=== PATIENT | male | born 1950 | race Caucasian/White ===

== ENCOUNTER 2017-04-24 09:23 | Emergency (ER) | payer BC ==
[~2017-04-24] VITALS: Ht 182.9 cm; Wt 109.1 kg
[~2017-04-24 09:23] MED LIST: ALEVE 220MG220 MG PO; ASPIRIN E.C. 8181 MG PO; CRESTOR 10MG10 MG PO; IMDUR 30MG30 MG/TAB PO; INDERAL LA120 MG PO; LOPRESSOR 225 MG/TAB PO; NITROSTAT0.4 MG/TAB SL; NORCO 325 MG-7.1 TAB PO; PLAVIX 75MG TAB75 MG PO; PRINIVIL20 MG PO; ROXICODONE 55 MG/TAB PO; ZESTRIL 20MG TA20 MG PO
[2017-04-24 09:35] VITALS: TEMP 97.9
[2017-04-24 10:23] LABS: ADJUSTED CALCIUM 8.7 mg/dL (8.4-10.2); ALANINE AMINOTRANSFERASE 32 U/L (21-72); ALBUMIN 4.3 gm/dL (3.5-5.0); ALKALINE PHOSPHATASE 81 U/L (50-136); ANION GAP 13 mmol/L (7-16); BILIRUBIN,TOTAL 0.7 mg/dL (0.0-1.0); BLOOD UREA NITROGEN 15 mg/dL (9-20); CALCIUM 8.9 mg/dL (8.4-10.2); CARBON DIOXIDE 21 mmol/L (22-30); CHLORIDE 110 mmol/L (98-107); CREATININE, serum 0.85 mg/dL (0.66-1.25); GLUCOSE 108 mg/dL (74-106); LIPASE 105 U/L (23-300); SODIUM 144 mmol/L (137-145); TOTAL PROTEIN 7.4 gm/dL (6.4-8.2)
[2017-04-24 10:35] LABS: B-TYPE NATRIURETIC PEPTIDE 78 pg/mL (0-125)
[2017-04-24 10:36] LABS: TROPONIN-I < 0.012 ng/mL (0.000-0.034)
[2017-04-24 10:51] LABS: BASO % 0.7 % (0.0-2.0); EOS # 0.2 (0.0-0.7); EOS % 2.8 % (0-4.0); HEMATOCRIT 38.1 % (42.0-52.0); HEMOGLOBIN 12.2 g/dl (13.5-18.0); LYMPH # 1.6 (1.2-3.4); LYMPH % 29.6 % (20.0-51.0); MEAN CELL VOLUME 81 fl (80.0-100.0); MEAN CORPUSCULAR HEMOGLOBIN 26 pg (27.0-31.0); MEAN CORPUSCULAR HGB CONC 32 g/dl (33.0-37.0); MEAN PLATELET VOLUME 11.4 fl (7.4-10.4); MONO # 0.6 (0.1-0.6); MONO % 10.7 % (1.7-9.3); PLATELET COUNT 172 K/mm3 (130-400); RED BLOOD COUNT 4.69 M/mm3 (4.20-5.60); REDCELL DISTRIBUTION WIDTH-CV 15.4 % (11.5-14.5); WHITE BLOOD COUNT 5.4 K/mm3 (4.8-10.8)
[2017-04-24 11:00] LABS: PARTIAL THROMBOPLASTIN TIME 33.5 SECONDS (26.0-37.0)
[2017-04-24 14:21] VITALS: BP 120/85; PULSE 51
== END 2017-04-24 14:20 | disposition home or self-care (01) ==
LOC: COL.ER 09:23
PROVIDERS: Emergency Medicine
DX: R07.9 Chest pain, unspecified (principal); E78.5 Hyperlipidemia, unspecified; I25.10 Atherosclerotic heart disease of native coronary artery without angina pectoris; Z98.890 Other specified postprocedural states; Z79.82 Long term (current) use of aspirin

== ENCOUNTER 2017-11-19 19:02 | Inpatient (IN) | payer BC ==
[~2017-11-19] VITALS: Ht 182.9 cm; Wt 109.8 kg
[2017-11-19 19:18] LABS: BASO # 0.1 (0.0-0.2); BASO % 0.8 % (0.0-2.0); EOS # 0.3 (0.0-0.7); EOS % 3.9 % (0-4.0); GRAN # 3.9 (1.4-6.5); GRAN % 51.6 % (42.2-75.2); HEMATOCRIT 37.2 % (42.0-52.0); HEMOGLOBIN 12.1 g/dl (13.5-18.0); LYMPH # 2.5 (1.2-3.4); LYMPH % 32.5 % (20.0-51.0); MEAN CELL VOLUME 79 fl (80.0-100.0); MEAN CORPUSCULAR HEMOGLOBIN 26 pg (27.0-31.0); MEAN CORPUSCULAR HGB CONC 33 g/dl (33.0-37.0); MEAN PLATELET VOLUME 10.9 fl (7.4-10.4); MONO # 0.8 (0.1-0.6); MONO % 10.9 % (1.7-9.3); PLATELET COUNT 177 K/mm3 (130-400); REDCELL DISTRIBUTION WIDTH-CV 14.9 % (11.5-14.5)
[2017-11-19 19:30] LABS: ALANINE AMINOTRANSFERASE 33 U/L (21-72); ALBUMIN 4.3 gm/dL (3.5-5.0); ALKALINE PHOSPHATASE 87 U/L (50-136); ANION GAP 14 mmol/L (7-16); AST,SGOT 24 U/L (15-37); BILIRUBIN,TOTAL 0.5 mg/dL (0.0-1.0); BLOOD UREA NITROGEN 16 mg/dL (9-20); CALCIUM 9.1 mg/dL (8.4-10.2); CARBON DIOXIDE 24 mmol/L (22-30); CHLORIDE 105 mmol/L (98-107); CREATINE KINASE 180 U/L (55-170); CREATININE, serum 1.09 mg/dL (0.66-1.25); GLUCOSE 105 mg/dL (74-106); LIPASE 173 U/L (23-300); POTASSIUM 4.2 mmol/L (3.4-5.0); SODIUM 143 mmol/L (137-145); TOTAL PROTEIN 8.4 gm/dL (6.4-8.2)
[2017-11-19 19:43] LABS: TROPONIN-I < 0.012 ng/mL (0.000-0.034)
[2017-11-19] MEDS ORDERED: ALEVE 220MG220 MG PO (20:09)
[2017-11-19 20:32] VITALS: BP 137/75; PULSE 53; TEMP 97
[2017-11-20] VITALS (13 sets, daily range): BP systolic 93–170; BP diastolic 56–97; PULSE 49–89; TEMP 97.9–98.5
[2017-11-20 07:02] LABS: BASO % 0.4 % (0.0-2.0); EOS # 0.3 (0.0-0.7); EOS % 3.7 % (0-4.0); GRAN # 4.1 (1.4-6.5); GRAN % 59.6 % (42.2-75.2); HEMATOCRIT 37.8 % (42.0-52.0); LYMPH # 1.8 (1.2-3.4); LYMPH % 26.2 % (20.0-51.0); MEAN CELL VOLUME 82 fl (80.0-100.0); MEAN CORPUSCULAR HEMOGLOBIN 26 pg (27.0-31.0); MEAN CORPUSCULAR HGB CONC 32 g/dl (33.0-37.0); MEAN PLATELET VOLUME 11.4 fl (7.4-10.4); MONO # 0.7 (0.1-0.6); MONO % 9.8 % (1.7-9.3); PLATELET COUNT 171 K/mm3 (130-400); RED BLOOD COUNT 4.63 M/mm3 (4.20-5.60)
[2017-11-20 07:17] LABS: ALANINE AMINOTRANSFERASE 36 U/L (21-72); ALBUMIN 3.8 gm/dL (3.5-5.0); ALKALINE PHOSPHATASE 85 U/L (50-136); ANION GAP 12 mmol/L (7-16); AST,SGOT 28 U/L (15-37); BILIRUBIN,TOTAL 0.5 mg/dL (0.0-1.0); BLOOD UREA NITROGEN 17 mg/dL (9-20); CALCIUM 8.7 mg/dL (8.4-10.2); CARBON DIOXIDE 28 mmol/L (22-30); CHLORIDE 105 mmol/L (98-107); CHOLESTEROL 119 mg/dL (120-200); CHOLESTEROL RISK RATIO 4.5; CREATININE, serum 1.06 mg/dL (0.66-1.25); GLUCOSE 103 mg/dL (74-106); HDL CHOLESTEROL 26 mg/dL; LDL CHOLESTEROL 43 mg/dL; POTASSIUM 4.5 mmol/L (3.4-5.0); SODIUM 144 mmol/L (137-145); TOTAL PROTEIN 7.4 gm/dL (6.4-8.2); TRIGLYCERIDE 249 mg/dL
[2017-11-20 07:24] LABS: TROPONIN-I < 0.012 ng/mL (0.000-0.034)
[2017-11-21] VITALS (538 sets, daily range): BP systolic 105–154; BP diastolic 68–98; PULSE 41–66; TEMP 97–98.5; O2SAT 89–100
[2017-11-21 06:20] LABS: BASO % 0.5 % (0.0-2.0); EOS # 0.2 (0.0-0.7); EOS % 3.5 % (0-4.0); GRAN # 3.2 (1.4-6.5); GRAN % 56.5 % (42.2-75.2); HEMATOCRIT 37.6 % (42.0-52.0); LYMPH # 1.7 (1.2-3.4); LYMPH % 29.3 % (20.0-51.0); MEAN CELL VOLUME 82 fl (80.0-100.0); MEAN CORPUSCULAR HEMOGLOBIN 26 pg (27.0-31.0); MEAN CORPUSCULAR HGB CONC 32 g/dl (33.0-37.0); MEAN PLATELET VOLUME 11.4 fl (7.4-10.4); MONO # 0.6 (0.1-0.6); PLATELET COUNT 175 K/mm3 (130-400); RED BLOOD COUNT 4.61 M/mm3 (4.20-5.60)
[2017-11-21 06:32] LABS: CALCIUM 8.9 mg/dL (8.4-10.2); CREATININE, serum 0.99 mg/dL (0.66-1.25); POTASSIUM 4.2 mmol/L (3.4-5.0)
[2017-11-21 12:40] LABS: HEMOGLOBIN 12.3 g/dl (13.5-18.0); MEAN CELL VOLUME 79 fl (80.0-100.0); MEAN CORPUSCULAR HEMOGLOBIN 26 pg (27.0-31.0); MEAN CORPUSCULAR HGB CONC 32 g/dl (33.0-37.0); MEAN PLATELET VOLUME 10.6 fl (7.4-10.4); PLATELET COUNT 171 K/mm3 (130-400); RED BLOOD COUNT 4.79 M/mm3 (4.20-5.60); REDCELL DISTRIBUTION WIDTH-CV 14.7 % (11.5-14.5)
[2017-11-21 12:45] LABS: INR 1.2 (0.8-3.0); PROTHROMBIN TIME 14.2 SECONDS (9.7-12.8)
[2017-11-21 12:48] LABS: PARTIAL THROMBOPLASTIN TIME 57.2 SECONDS (26.0-37.0)
[2017-11-21 12:50] LABS: CALCIUM 8.6 mg/dL (8.4-10.2); CREATININE, serum 0.91 mg/dL (0.66-1.25); POTASSIUM 4.5 mmol/L (3.4-5.0)
[2017-11-22] VITALS (439 sets, daily range): BP systolic 103–140; BP diastolic 59–125; PULSE 49–63; TEMP 96.6–97.6; O2SAT 81–100
[2017-11-22 05:51] LABS: BASO # 0.1 (0.0-0.2); BASO % 0.7 % (0.0-2.0); EOS # 0.2 (0.0-0.7); EOS % 2.2 % (0-4.0); GRAN # 4.5 (1.4-6.5); GRAN % 65.7 % (42.2-75.2); HEMATOCRIT 38.4 % (42.0-52.0); HEMOGLOBIN 12.4 g/dl (13.5-18.0); LYMPH # 1.4 (1.2-3.4); LYMPH % 20.2 % (20.0-51.0); MEAN CELL VOLUME 80 fl (80.0-100.0); MEAN CORPUSCULAR HEMOGLOBIN 26 pg (27.0-31.0); MEAN CORPUSCULAR HGB CONC 32 g/dl (33.0-37.0); MEAN PLATELET VOLUME 11.1 fl (7.4-10.4); MONO # 0.8 (0.1-0.6); MONO % 10.9 % (1.7-9.3); PLATELET COUNT 171 K/mm3 (130-400); RED BLOOD COUNT 4.83 M/mm3 (4.20-5.60); REDCELL DISTRIBUTION WIDTH-CV 14.9 % (11.5-14.5)
[2017-11-22 06:03] LABS: CALCIUM 8.6 mg/dL (8.4-10.2); CREATININE, serum 1.05 mg/dL (0.66-1.25); POTASSIUM 4.1 mmol/L (3.4-5.0)
[2017-11-22] MEDS ORDERED: BRILINTA90 MG PO (11:30)
[2017-11-22] MEDS ORDERED: ZESTRIL 20MG TA20 MG PO (11:30)
[2017-11-22] MEDS ORDERED: CRESTOR 10MG10 MG PO (11:30)
== END 2017-11-22 12:10 | disposition home or self-care (01) | DRG 247 ==
LOC: COL.ER 19:02 → MEDICAL 19:47 → ICU 11-21 08:35 → MEDICAL 11-21 08:35 → ICU 11-21 10:17
PROVIDERS: Emergency Medicine; Nurse Practitioner; Physician Assistant
PROC: 027034Z Dilation of Coronary Artery, One Artery with Drug-eluting Intraluminal Device, Percutaneous Approach (ICD-10-PCS; principal; 2017-11-21)
PROC: 02703ZZ Dilation of Coronary Artery, One Artery, Percutaneous Approach (ICD-10-PCS; 2017-11-21)
PROC: B2111ZZ Fluoroscopy of Multiple Coronary Arteries using Low Osmolar Contrast (ICD-10-PCS; 2017-11-21)
DX: I25.110 Atherosclerotic heart disease of native coronary artery with unstable angina pectoris (principal); T82.855A Stenosis of coronary artery stent, initial encounter; Z95.5 Presence of coronary angioplasty implant and graft; Z87.891 Personal history of nicotine dependence; I10 Essential (primary) hypertension
CPT/HCPCS: 99232-AI; 99239; A9502; C9600; G0378; J0583; J1650; J2250; J2785; J3010; J7030; Q9967

== ENCOUNTER 2018-12-14 15:15 | Emergency (ER) | payer BC, MEDICARE ==
[~2018-12-14] VITALS: Ht 182.9 cm; Wt 108.2 kg
[~2018-12-14 15:15] MED LIST changes: +BRILINTA90 MG PO
[2018-12-14 15:40] VITALS: BP 117/70; TEMP 98.1
[2018-12-14] MEDS ORDERED: PRINIVIL40 MG PO (16:23)
[2018-12-14] MEDS ORDERED: BRILINTA90 MG PO (16:24)
[2018-12-14] MEDS ORDERED: CRESTOR20 MG PO (16:25)
[2018-12-14 16:41] VITALS: PULSE 66
== END 2018-12-14 16:41 | disposition home or self-care (01) ==
LOC: COL.ER 15:15
DX: S83.92XA Sprain of unspecified site of left knee, initial encounter (principal); X50.0XXA Overexertion from strenuous movement or load, initial encounter; Z79.82 Long term (current) use of aspirin

== ENCOUNTER 2021-03-27 07:08 | Day surgery (SDC) | payer BC ==
[2021-03-27] VITALS (9 sets, daily range): BP systolic 106–146; BP diastolic 68–108; PULSE 56–68; TEMP 97.5
[~2021-03-27] VITALS: Ht 182.9 cm; Wt 110.4 kg
[2021-03-27] MEDS ORDERED: TOPROL XL 25MG25 MG PO (07:34)
[2021-03-27] MEDS ORDERED: TRILIPIX45 MG PO (07:34)
[2021-03-27] MEDS ORDERED: PLAVIX 75MG TAB75 MG PO (07:34)
[2021-03-27 07:52] LABS: HEMATOCRIT 40.6 % (42.0-52.0); HEMOGLOBIN 12.9 g/dl (13.5-18.0); MEAN CELL VOLUME 83 fl (80.0-100.0); MEAN CORPUSCULAR HEMOGLOBIN 26 pg (27.0-31.0); MEAN CORPUSCULAR HGB CONC 32 g/dl (33.0-37.0); MEAN PLATELET VOLUME 10.7 fl (7.4-10.4); PLATELET COUNT 192 K/mm3 (130-400); RED BLOOD COUNT 4.89 M/mm3 (4.20-5.60); REDCELL DISTRIBUTION WIDTH-CV 15.8 % (11.5-14.5)
[2021-03-27 08:03] LABS: PROTHROMBIN TIME 11.5 SECONDS (9.7-12.8)
[2021-03-27 08:05] LABS: PARTIAL THROMBOPLASTIN TIME 29.2 SECONDS (26.0-37.0)
[2021-03-27 08:08] LABS: CALCIUM 9.2 mg/dL (8.4-10.2); CREATININE, serum 1.11 (0.66-1.25); POTASSIUM 4.3 mmol/L (3.4-5.0)
--- NOTE | 2021-03-27 13:20 | NUR ---
DC instructions reviewed with pt and , both expressed understanding. Air has been removed from TR band in 2 ml increments with no bleeding or complication. Rt radial puncture site dressed with 2x2 and bandaid. INT Dc'd with catheter intact. Pt steady on feet in room. He is assisted out to 's car by wheelchair with belongings.
== END 2021-03-27 13:20 | disposition home or self-care (01) ==
LOC: COL.CAR 07:08
PROVIDERS: Internal Medicine Interventional Cardiology
DX: I25.10 Atherosclerotic heart disease of native coronary artery without angina pectoris (principal); I10 Essential (primary) hypertension; R94.39 Abnormal result of other cardiovascular function study; R93.1 Abnormal findings on diagnostic imaging of heart and coronary circulation; Z79.82 Long term (current) use of aspirin; Z79.02 Long term (current) use of antithrombotics/antiplatelets; Z79.899 Other long term (current) drug therapy
CPT/HCPCS: C1769; J1644; J2250; J3010

== ENCOUNTER 2021-07-15 14:05 | Emergency (ER) | payer BC ==
[~2021-07-15] VITALS: Ht 182.9 cm; Wt 109.1 kg
[~2021-07-15 14:05] MED LIST changes: +TOPROL XL 25MG25 MG PO; +TRILIPIX45 MG PO
[2021-07-15 14:30] VITALS: BP 152/88; PULSE 68; TEMP 98.2
== END 2021-07-15 15:00 | disposition home or self-care (01) ==
LOC: COL.ER 14:05
DX: M70.21 Olecranon bursitis, right elbow (principal); I25.10 Atherosclerotic heart disease of native coronary artery without angina pectoris; Z79.82 Long term (current) use of aspirin

== ENCOUNTER 2022-06-19 13:12 | Day surgery (SDC) | payer BC ==
[2022-06-19] VITALS (44 sets, daily range): BP systolic 101–1120; BP diastolic 57–91; PULSE 87–112; TEMP 98.2; O2SAT 85–96
[~2022-06-19] VITALS: Ht 182.9 cm; Wt 108.0 kg
[2022-06-19 13:40] LABS: HEMATOCRIT 38.1 % (42.0-52.0); HEMOGLOBIN 12.4 g/dl (13.5-18.0); MEAN CELL VOLUME 81 fl (80.0-100.0); MEAN CORPUSCULAR HEMOGLOBIN 26 pg (27-31); MEAN CORPUSCULAR HGB CONC 33 g/dl (33.0-37.0); MEAN PLATELET VOLUME 10.9 fl (7.4-10.4); PLATELET COUNT 200 K/mm3 (130-400); RED BLOOD COUNT 4.72 M/mm3 (4.20-5.60); REDCELL DISTRIBUTION WIDTH-CV 14.6 % (11.5-14.5)
[2022-06-19 13:48] LABS: INR 1.1 (0.8-3.0); PROTHROMBIN TIME 12.6 SECONDS (9.7-12.8)
[2022-06-19 13:51] LABS: PARTIAL THROMBOPLASTIN TIME 38.4 SECONDS (26.0-37.0)
[2022-06-19 13:55] LABS: CALCIUM 9.2 mg/dL (8.4-10.2); CREATININE, serum 1.51 mg/dL (0.72-1.25)
--- NOTE | 2022-06-19 14:32 | NUR ---
Pt to procedure.Pt prepeed by Deric Palacios from cathead operator.
--- NOTE | 2022-06-19 15:15 | NUR ---
PT TO [facility] 10 VIA BED AFTER HEART CATH, DR GIRON INTO SEE PT AND TALK WITH FAMILY, LAB ORDERED. PT TAKES SPRITE. PT HAS NO C/O, REVIEWED BEDREST WITH PT AND RADIAL BAND PRECAUTIONS WITH PT. CALL LIGHT IN REACH, NO C/O
[2022-06-19] MEDS ORDERED: IMDUR 30MG30 MG/TAB PO (15:28)
[2022-06-19 15:57] LABS: CHOLESTEROL RISK RATIO 5.1
--- NOTE | 2022-06-19 16:15 | NUR ---
PT ATE SUPPER, FAMILY LEFT FOR SHORT TIME, REPORT TO SHAD BENNETT, NO C/O OR CHANGES
--- NOTE | 2022-06-19 16:30 | NUR ---
Report from DONALD Obrien.
--- NOTE | 2022-06-19 17:40 | NUR ---
All air released from right radial band in 2-3 ml incriments.No bleeding observed at site.Right wrist wrapped in gauze and coban.
--- NOTE | 2022-06-19 17:58 | NUR ---
Discharge instructions given to pt.Pt verbalizes understanding.Pt escorted out via wheelchair by this nurse.
== END 2022-06-19 18:05 ==
LOC: EUO 13:12
PROVIDERS: Internal Medicine Interventional Cardiology; Nurse Practitioner
DX: I25.10 Atherosclerotic heart disease of native coronary artery without angina pectoris (principal)
CPT/HCPCS: J2250; J3010

== ENCOUNTER → 2022-06-19 | Outpatient (CLI) | payer BC ==
[2022-06-19 10:54] LABS: PHOSPHOROUS 2.8 mg/dL (2.3-4.7)
[2022-06-19 11:15] LABS: THYROID STIMULATING HORMONE 3.295 uIU/mL (0.350-4.940)
[2022-06-19 11:31] LABS: TROPONIN-I 0.125 ng/mL (0.00-0.033)
== END ==
LOC: COL.LAB 09:59
DX: I48.91 Unspecified atrial fibrillation (principal)

== ENCOUNTER 2022-10-05 18:07 | Emergency (ER) | payer BC ==
[~2022-10-05] VITALS: Ht 182.9 cm; Wt 106.8 kg
[2022-10-05 18:15] VITALS: BP 164/94
[2022-10-05] MEDS ORDERED: MOLNUPIRAVIR (200 MG PO (18:57)
[2022-10-05 19:04] VITALS: PULSE 89; TEMP 98.6
== END 2022-10-05 19:06 | disposition home or self-care (01) ==
LOC: COL.ER 18:07
DX: U07.1 COVID-19 (principal); R05.9 Cough, unspecified; R09.81 Nasal congestion; R50.9 Fever, unspecified

== ENCOUNTER → 2024-01-07 | Day surgery (SDC) | payer BC ==
[~2024-01-07] MED LIST changes: +Lidocaine PF 2% (20 MG/ML) 5 ML VIAL ONE; +MOLNUPIRAVIR (200 MG PO; +NS 10 ML IV ONE; +Ondansetron 4 MG/2 ML VIAL ONE; +ZOFRAN ODT4 MG PO; +dexAMETHasone 10 MG/ML VIAL ONE; +fentaNYL 50 MCG/ML 2 ML VIAL ONE
== END ==
LOC: SDCO 07:30
DX: G56.01 Carpal tunnel syndrome, right upper limb (principal); I10 Essential (primary) hypertension; I48.91 Unspecified atrial fibrillation; Z95.5 Presence of coronary angioplasty implant and graft; Z95.818 Presence of other cardiac implants and grafts; Z79.899 Other long term (current) drug therapy; Z79.01 Long term (current) use of anticoagulants; Z79.82 Long term (current) use of aspirin
CPT/HCPCS: J0690; J1100; J2405; J2704; J3010